=== PATIENT | female | born 1990 | race Two or more races ===

== ENCOUNTER 2024-06-01 14:53 | Emergency (ER) | payer OTHER, MEDICAID ==
[~2024-06-01] VITALS: Ht 162.6 cm; Wt 81.8 kg
[2024-06-01 16:41] VITALS: BP 132/91; PULSE 69; RESP 18; TEMP 98.7; O2SAT 98
[2024-06-01] MEDS: SODIUM CHLORIDE 0.9% 1,000 ML IV ONE (17:09)
[2024-06-01] MEDS: DexAMETHasone SOD PHOS 10MG/1ML VIAL INJ IM ONE (17:12)
[2024-06-01] MEDS ORDERED: LIDO2SOL26 MT (17:33)
[2024-06-01] MEDS ORDERED: ACET-1881 PO (17:33)
[2024-06-01] MEDS ORDERED: PRED20TA2 PO (17:33)
== END 2024-06-01 18:41 | disposition home or self-care (01) ==
LOC: ER 14:53 → EDBD 14:53 → ER 18:41
DX: J35.8 Other chronic diseases of tonsils and adenoids (principal); Z79.899 Other long term (current) drug therapy
CPT/HCPCS: 96360; 96372; 99283; J1100; J7030; 90471